=== PATIENT | male | born 1965 ===

== ENCOUNTER 2023-10-05 15:16 | Outpatient (OUT) | payer BC, SELFPAY ==
--- NOTE | 2023-10-05 | XR_ITS ---
The [address] [address] Patient Name: PIEDAD FISCHER MRN: [id number] date: 1965 Sex: M Assigned Patient Location: Current Patient Location: Accession/Order Number: [id number] Exam Date: 10/05/2023 15:21 Report Date: 10/06/2023 11:19 At the request of: YEE GATES Procedure: XR knee LT 4V PROCEDURE: XR knee LT 4V HISTORY: LEFT KNEE PAIN COMPARISON: XR knee left 07/25/2023 FINDINGS: BONES:Slight articular surface irregularity along the weightbearing surface of the medial and lateral condyles as seen on the lateral view. No significant joint space narrowing or periarticular degenerative osteophytes.. SOFT TISSUES:No visible soft tissue swelling. EFFUSION:None visible. OTHER: Negative. XR/XR knee LT 4V IMPRESSION: 1. Developmental variation versus sequela of remote injury versus acute depression of the articular surfaces of the medial and lateral femoral condyles. Consider MRI for further evaluation if symptoms persist. Electronically authenticated by: MIAH AHUMADA Date: 10/06/2023 11:19
== END 2023-10-05 15:17 | disposition home or self-care (01) ==
LOC: EC 15:20
PROVIDERS: Visit Provider Student in an Organized Health Care Education/Training Program
DX: M25.562 Pain in left knee (principal)
CPT/HCPCS: 73564